=== PATIENT | female | born 1980 | race African-American/Black ===

== ENCOUNTER 2020-06-02 15:24 | Outpatient (REF) | payer OTHER, SELFPAY | END 2020-06-02 15:25 | disposition home or self-care (01) | LOC: HO.LAB 15:24 | PROVIDERS: Visit Provider Internal Medicine | DX: Z20.822 Contact with and (suspected) exposure to COVID-19 (principal) | CPT/HCPCS: C9803; U0003; U0005 ==

== ENCOUNTER 2020-10-11 13:00 | Emergency (ER) | payer OTHER, SELFPAY ==
[2020-10-11 13:15] VITALS: BP 109/75; PULSE 94; RESP 16; TEMP 36.1; O2SAT 98; BMI 26.6
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
[2020-10-11] MEDS: Diphth,Pertus(ACell),Tet Adult 0.5 ML SYRINGE IM (15:25)
[2020-10-11] MEDS: Amoxicillin/Potassium Clav 875 MG TABLET PO (15:25)
== END 2020-10-11 15:36 | disposition home or self-care (01) ==
PROVIDERS: Emergency Provider Emergency Medicine; PCP Internal Medicine
DX: S40.872A Other superficial bite of left upper arm, initial encounter (principal); Y04.1XXA Assault by human bite, initial encounter; Y93.9 Activity, unspecified; Y92.9 Unspecified place or not applicable; Y99.9 Unspecified external cause status
CPT/HCPCS: 90471; 90715; 99283; 99284

== ENCOUNTER 2021-08-25 12:37 | Emergency (ER) | payer OTHER, SELFPAY | END 2021-08-25 13:33 | disposition left against medical advice (07) | PROVIDERS: Emergency Provider Emergency Medicine | DX: Z04.1 Encounter for examination and observation following transport accident (principal); R51.9 Headache, unspecified ==

== ENCOUNTER 2021-08-26 10:45 | Emergency (ER) | payer OTHER, SELFPAY ==
[2021-08-26 11:20] VITALS: BP 136/89; PULSE 98; RESP 17; TEMP 37; O2SAT 98; BMI 26.7
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
== END 2021-08-26 13:12 | disposition home or self-care (01) ==
PROVIDERS: Emergency Provider Emergency Medicine; PCP Internal Medicine
DX: S06.0X9A Concussion with loss of consciousness of unspecified duration, initial encounter (principal); M54.2 Cervicalgia; M54.50 Low back pain, unspecified; R51.9 Headache, unspecified; M79.10 Myalgia, unspecified site; V43.62XA Car passenger injured in collision with other type car in traffic accident, initial encounter; Y93.9 Activity, unspecified; Y92.410 Unspecified street and highway as the place of occurrence of the external cause; Y99.9 Unspecified external cause status; Z79.899 Other long term (current) drug therapy
CPT/HCPCS: 99282

== ENCOUNTER 2021-08-27 11:57 | Outpatient (REF) | payer OTHER, SELFPAY ==
[2021-08-28 06:50] LABS: HBS Num1 7.86 mIU/mL (0-7.99); HBc Num1 0.04 S/CO (0.00-0.79); HBsAGNum1 0.22 S/CO (0.00-0.99); Hepatitis B Core Antibody Nonreactive (Nonreactive); Hepatitis B Surface Antigen Negative (Negative); ~Hepatitis B Surface Antibody NONREACTIVE (Nonreactive)
[2021-08-29 09:42] LABS: Mumps Virus IgG Antibody >300.00 AU/mL; Rubella IgG Antibody 6.11 Index; Rubeola IgG (Measles) >300.00 AU/mL
== END 2021-08-27 11:58 | disposition home or self-care (01) ==
LOC: HO.LAB 11:57
PROVIDERS: PCP Internal Medicine; Visit Provider Internal Medicine
DX: Z01.84 Encounter for antibody response examination (principal); Z28.39 Other underimmunization status
CPT/HCPCS: 36415; 86704; 86706; 86735; 86762; 86765; 86787; 87340